=== PATIENT | female | born 1990 | race American Indian/Alaskan Native ===

== ENCOUNTER 2017-04-08 17:23 | Emergency (ER) | payer SELFPAY ==
--- NOTE | 2017-04-08 20:11 | Emergency Department Report ---
ED Extremity Problem HPI - General Chief complaint: Skin/Abscess/Foreign Body Stated complaint: POSS INSECT BITE ON ARM/RED AND SWOLLEN Time Seen by Provider: 04/08/17 19:59 Source: patient Mode of arrival: Ambulatory Limitations: No Limitations - History of Present Illness Initial comments: PT states two days ago she was outside on her balcony and she was bit by insect. PT states that the bites itch and hurt and are red and swollen. PT states the redness and swelling have gradually been increasing. PT states she might be . PT states her period is late. -: Sudden, days(s) (2) Location: left, upper extremity -: No fever Severity scale (0 -10): 9 Quality: sharp, constant Consistency: constant Improves with: nothing Worsens with: other (gradually ) Associated Symptoms: rash. denies: chest pain, fever - Related Data Previous Rx's Medication Instructions Recorded Last Taken Type Cephalexin [Keflex] 500 mg PO Q6HR #28 capsule 04/08/17 Unknown Rx Ibuprofen [Motrin] 600 mg PO Q8H PRN #15 tablet 04/08/17 Unknown Rx hydrOXYzine PAMOATE [Vistaril] 25 mg PO Q6HR PRN #12 capsule 04/08/17 Unknown Rx predniSONE [Deltasone] 40 mg PO QDAY 3 Days 04/08/17 Unknown Rx Allergies Allergy/AdvReac Type Severity Reaction Status Date / Time No Known Allergies Allergy Verified 04/08/17 17:52 ED Review of Systems ROS: Stated complaint: POSS INSECT BITE ON ARM/RED AND SWOLLEN Other details as noted in HPI Comment: All other systems reviewed and negative Constitutional: chills. denies: fever, malaise Gastrointestinal: denies: abdominal pain, nausea, vomiting Genitourinary: abnormal menses Skin: rash, change in color ED Past Medical Hx - Past Medical History Previous Medical History?: No - Surgical History Past Surgical History?: No - Social History Smoking Status: Current Every Day Smoker Substance Use Type: Alcohol - Medications Home Medications: Home Medications Medication Instructions Recorded Confirmed Last Taken Type Cephalexin [Keflex] 500 mg PO Q6HR #28 capsule 04/08/17 Unknown Rx Ibuprofen [Motrin] 600 mg PO Q8H PRN #15 tablet 04/08/17 Unknown Rx hydrOXYzine PAMOATE [Vistaril] 25 mg PO Q6HR PRN #12 capsule 04/08/17 Unknown Rx predniSONE [Deltasone] 40 mg PO QDAY 3 Days 04/08/17 Unknown Rx ED Physical Exam - General Limitations: No Limitations General appearance: alert, in no apparent distress - Head Head exam: Present: atraumatic, normocephalic, normal inspection - Eye Eye exam: Present: normal appearance, PERRL. Absent: conjunctival injection - ENT ENT exam: Present: normal exam, mucous membranes moist, normal external ear exam - Neck Neck exam: Present: normal inspection, full ROM - Respiratory Respiratory exam: Present: normal lung sounds bilaterally. Absent: chest wall tenderness - Cardiovascular Cardiovascular Exam: Present: regular rate, normal rhythm, normal heart sounds - GI/Abdominal GI/Abdominal exam: Present: soft. Absent: tenderness - Extremities Exam Extremities exam: Present: full ROM. Absent: tenderness - Expanded Upper Extremity Exam Left Upper Arm exam: Present: swelling, erythema (localized to the site where pt states she had insect bite. ) Forearm Wrist exam: Present: swelling, erythema (localized to site of pt's insect bite ) Hand Wrist exam: Present: normal inspection, full ROM Vascular: Present: normal capillary refill, radial pulse. Absent: vascular compromise - Back Exam Back exam: Present: normal inspection, full ROM - Neurological Exam Neurological exam: Present: alert, oriented X3, normal gait - Psychiatric Psychiatric exam: Present: normal affect, normal mood - Skin Skin exam: Present: warm, dry, intact, erythema. Absent: urticaria, vesicles ED Course Vital Signs 04/08/17 04/08/17 17:53 21:47 Temperature 98.6 F Pulse Rate 99 H 90 Respiratory 18 18 Rate Blood Pressure 117/72 Blood Pressure 120/70 [Left] O2 Sat by Pulse 100 100 Oximetry - Reevaluation(s) Reevaluation #1: 04/08/17 20:11 PT aware of plan of care. PT has no questions at this time. Reevaluation #2: 04/08/17 21:21 Pt aware of lab results. PT aware of plan of care. PT has no questions at this time. - Pulse Oximetry Interpretation Digit-Finger Initial Pulse Oximetry Readin Actions Taken: none ED Medical Decision Making - Differential Diagnosis local reaction to insect bite, cellulitis Critical Care Time: No Critical care attestation.: If time is entered above; I have spent that time in minutes in the direct care of this critically ill patient, excluding procedure time. ED Disposition Clinical Impression: Insect bite Qualifiers: Encounter type: initial encounter Qualified Code(s): W57.XXXA - Bitten or stung by nonvenomous insect and other nonvenomous arthropods, initial encounter Disposition: DC- TO HOME OR SELFCARE Is pt being admited?: No Does the pt Need Aspirin: No Condition: Stable Instructions: Cellulitis (ED), Insect Bite or Sting (ED) Additional Instructions: No driving or alcohol after taking Vistaril Do not take Benadryl with Vistaril return to the ED if worsening redness, pain, or you develop fevers or vomiting or have concerns follow up with PCP in 3-5 days Prescriptions: Cephalexin [Keflex] 500 mg PO Q6HR #28 capsule hydrOXYzine PAMOATE [Vistaril] 25 mg PO Q6HR PRN #12 capsule PRN Reason: Itching Ibuprofen [Motrin] 600 mg PO Q8H PRN #15 tablet PRN Reason: Pain predniSONE [Deltasone] 40 mg PO QDAY 3 Days Referrals: PRIMARY CAREMD [Primary Care Provider] - 3-5 Days [facility] MELGOZA MD [Staff Physician] - 3-5 Days [facility] [Outside] - 3-5 Days Forms: Work/School Release Form(ED) Time of Disposition: 21:28
[2017-04-08] MEDS ORDERED: DELTASONE PO ONE (21:30)
[2017-04-08 21:48] VITALS: BP 120/70
== END 2017-04-08 21:47 | disposition home or self-care (01) ==
LOC: ED 17:23
DX: S40.862A Insect bite (nonvenomous) of left upper arm, initial encounter (principal); F17.200 Nicotine dependence, unspecified, uncomplicated; W57.XXXA Bitten or stung by nonvenomous insect and other nonvenomous arthropods, initial encounter; Y93.89 Activity, other specified; Y99.8 Other external cause status; Y92.89 Other specified places as the place of occurrence of the external cause
CPT/HCPCS: 81025; 99283; J7512